=== PATIENT | male | born 1995 | race Caucasian/White ===

== ENCOUNTER 2017-11-28 13:29 | Day surgery (SDC) | payer OTHER ==
[2017-11-28] MEDS ORDERED: FENTANYL CITRATE INJ/PF 100 MCG/2 ML AMPUL ONE ×2 (14:29)
[2017-11-28] MEDS ORDERED: MIDAZOLAM 2 MG/2 ML INJ ONE (14:29)
[2017-11-28] MEDS ORDERED: PROPOFOL INJ 200 MG/20 ML VIAL IV ONE (14:30)
--- NOTE | 2017-11-28 14:38 | RADIOLOGY REPORT (SQ) ---
EXAM DESCRIPTION: CHEST SINGLE VIEW COMPLETED DATE/TIME: 11/28/2017 2:24 pm REASON FOR STUDY: Pre-operative COMPARISON: None. EXAM PARAMETERS: NUMBER OF VIEWS: One view. TECHNIQUE: Single frontal radiographic view of the chest acquired. RADIATION DOSE: NA LIMITATIONS: None. FINDINGS: LUNGS AND PLEURA: No opacities, masses or pneumothorax. No pleural effusion. MEDIASTINUM AND HILAR STRUCTURES: No masses. Contour normal. HEART AND VASCULAR STRUCTURES: Heart normal in size. Normal vasculature. BONES: No acute findings. HARDWARE: None in the chest. OTHER: No other significant finding. IMPRESSION: NO ACUTE RADIOGRAPHIC FINDING IN THE CHEST. TECHNICAL DOCUMENTATION: JOB ID: [id number] [employer]- All Rights Reserved Reading location - IP/workstation name: [email or web address]
[2017-11-28 14:49] LABS: ABSOLUTE EOSINOPHILS # (AUTO) 0.1 10^3/uL (0.0-0.6); ABSOLUTE LYMPHOCYTES (AUTO) 1.4 10^3/uL (0.5-4.7); ABSOLUTE MONOCYTES (AUTO) 0.4 10^3/uL (0.1-1.4); ABSOLUTE NEUT (AUTO) 3.7 10^3/uL (1.7-8.2); BASOPHILS % (AUTO) 0.3 % (0-2); HEMATOCRIT 47.6 % (37.9-51.0); HEMOGLOBIN 16.6 g/dL (13.5-17.0); LYMPHOCYTES % (AUTO) 25.5 % (13-45); MEAN CORPUSCULAR HEMOGLOBIN 30.1 pg (27.0-33.4); MEAN CORPUSCULAR HGB CONC 34.9 g/dL (32.0-36.0); MEAN CORPUSCULAR VOLUME 86 fl (80-97); MONOCYTES % (AUTO) 7.9 % (3-13); PLATELET COUNT 217 10^3/uL (150-450); RED BLOOD COUNT 5.51 10^6/uL (4.35-5.55); RED CELL DISTRIBUTION WIDTH 13.3 % (11.5-14.0); SEGMENTED NEUTROPHILS % (AUTO) 65.3 % (42-78); TOTAL CELLS COUNTED % (AUTO) 100 %; WHITE BLOOD COUNT 5.6 10^3/uL (4.0-10.5)
[2017-11-28] MEDS ORDERED: ONDANSETRON HCL INJ/PF 4 MG/2 ML SDV ONE (14:55)
[2017-11-28] MEDS ORDERED: DEXAMETHASONE SOD PHOSPHATE INJ 4 MG/1 ML VIAL ONE (14:55)
[2017-11-28 15:19] LABS: ANION GAP 11 (5-19); BLOOD UREA NITROGEN 12 mg/dL (7-20); CALCIUM 9.9 mg/dL (8.4-10.2); CARBON DIOXIDE 32 mmol/L (22-30); CHLORIDE 100 mmol/L (98-107); GLUCOSE 93 mg/dL (75-110); POTASSIUM 3.9 mmol/L (3.6-5.0); SODIUM 143.1 mmol/L (137-145)
[2017-11-28] MEDS ORDERED: CEFAZOLIN 2 GM/D5W RTU 2 GM/50 ML RTUPB IV ONE (15:27)
[2017-11-28] MEDS ORDERED: BUPIVACAINE HCL 0.5 % INJ/PF 30 ML SDV ONE (15:44)
[2017-11-28] MEDS ORDERED: LIDOCAINE 2% INJ-PF (20 MG/ML) 10 ML AMPUL ONE (15:53)
[2017-11-28] MEDS ORDERED: ACETAMINOPHEN 100 ML IV ONE (15:53)
[2017-11-28] MEDS ORDERED: ONDANSETRON HCL INJ/PF 4 MG/2 ML SDV IV PRN (19:08)
[2017-11-28] MEDS ORDERED: FENTANYL CITRATE INJ/PF 100 MCG/2 ML AMPUL IV PRN (19:08)
[2017-11-28] MEDS ORDERED: OXYCODONE-ACETAMINOPHEN 5-325 MG TABLET PO PRN (19:08)
--- NOTE | 2017-11-28 19:08 | Operative Report ---
Operative Report DATE OF SURGERY: 11/28/17 PREOPERATIVE DIAGNOSIS: Left Middle Finger Flexor Tendon Laceration POSTOPERATIVE DIAGNOSIS: FDP/FDS Laceration Left Middle Finger. Ulnar Digital Nerve Laceration Left Middle Finger OPERATION: Repair FDP/ Ulnar Slip FDS Laceration Left Middle Finger. Repair Ulnar Digital Nerve Laceration Left Middle Finger w/ Nerve Allograft with the use of microscope SURGEON: LANDY GLASS 1ST ADVERTISING ACCOUNT MANAGER: HONEY GRAHAM - Required for digital nerve repair for retraction and allograft manipulation under microscope magnification ANESTHESIA: GA COMPLICATIONS: None ESTIMATED BLOOD LOSS: Minimal PROCEDURE: Indication for above procedure: Pleasant 22-year-old male who inadvertently sustained a laceration to his left middle finger. Patient inability to flex his DIP joint thus I was likely patient sustained a flexor tendon injury. Furthermore he also had numbness and tingling in the tip of his digit indicating likely digital nerve laceration as well. Unfortunately patient had delayed follow-up but we discussed treatment options and decision was made to proceed with operative treatment. Risks and benefits were explained patient verbalized understanding consented for the procedure. Procedure In Detail: Patient was seen and evaluated in the preoperative holding area. The LEFT upper extremity was initialized and marked. Patient received 2 g Ancef IV for bacterial prophylaxis. Patient was taken back to the operative room where patient was transferred to the operative table. Patient was then placed under general anesthesia. Once he was adequately anesthetized and a nonsterile tourniquet was placed on his upper extremity. A sugical team review was performed ensuring all instrumentation was available, the surgical procedure was discussed with possible concerns reviewed. The upper extremity prepped with chlorhexidine and alcohol and draped in a sterile fashion. A timeout was done identifying correct patient, procedure and extremity everyone in attendance agree with this and verbalized no concerns.The extremity was exsanguinated the tourniquet was inflated to 250 mmHg. The LEFT MIDDLE finger laceration was opened and a Radha type incision was extended proximally and distally over the A1 and A4 pulleys. The neurovascular bundle radially and ulnarly were identified, the ulnar digital nerve was lacerated. At this point the FDS and FDP tendons were identified proximally and a portion of the A1 bianca released. With the use of the tendon grasper the tendons were then pulled through the A2 bianca from its proximal location in the palm the appropriate anatomic distribution of the tendons was ensured at Camper's chiasm. The tendons were then secured into position with a 22-gauge needle. The radial FDS slip was excised to decrease postoperative work of flexion. The A4 bianca was then partially vented distally to ensure adequate space for optimal gliding through the bianca sheath. The ulnar slip of the FDS was then repaired with a modified Redman stitch utilizing 5-0 proline suture. I began the epitendinous suture along the dorsal aspect of the FDP tendon with a simple running suture. The FDP was then repaired utilizing 8-stranded repair with a cruciate suture technique utilizing 3-0 Supramid suture. The epitendinous suture was then completed running along the volar surface and secured. There was optimal approximation of the tendon surfaces. There is no evidence catching or locking along the A2 or A4 bianca. No evidence of bowstringing. Patient had full passive range of motion and active range of motion with forearm squeeze and tenodesis. I then turned my attention to digital nerve repair. There was a 20 mm digital nerve gap. Thus the 1-2 mm x 30 mm Axogen nerve allograft was placed in the back table in warm saline. Once the appropriate consistency it was trimmed to fill the 20 mm digital nerve gap. Under microscope magnification the epineural repair was performed with 8-0 nylon suture. There was no evidence of gapping or tension after repair. This was then reinforced with Tisseel fibrin glue. Tourniquet was then deflated. Any peripheral bleeding was controlled with bipolar cautery into the wound was dry. Patient had normal capillary refill. A digital block was performed utilizing 0.5% Marcaine without epinephrine for postoperative pain control. The wound was then copious irrigated with normal saline. Skin incision was closed with interrupted 4-0 nylon suture. The wound was dressed with sterile Xeroform and 4 x 4's. Patient was placed in a dorsal blocking plaster splint that extended past the IP joints with the wrist at neutral flexion, MCP joint at 60 of flexion and the IP joints at resting flexion. Sponge counts, instrument counts, needle counts counts were correct. Patient was then awoken from anesthesia. Transferred from the operating room table to the operating room stretcher. There was no intraoperative complications patient tolerated procedure well stable to PACU. Postoperative plan: Patient will follow in the office in 2 weeks for suture removal. Will be set up for occupational therapy 5-7 days postoperatively as per zone II flexor tendon protocol.
--- NOTE | 2017-11-28 19:20 | Discharge Summary ---
Discharge Summary (SDC) - Discharge Final Diagnosis: FDP/FDS Laceration Left Middle Finger Ulnar Digital Nerve Laceration Left Middle Finger Date of Surgery: 11/28/17 Discharge Date: 11/28/17 Condition: Good Treatment or Instructions: Schedule Follow Up w/ Dr. Ebenezer Agustin @ [facility] to be seen in 10-14 days or as scheduled [place]: [place]: [place]: Ice and elevate Keep splint clean/dry/intact. If your fingers become numb please unwrap the Rico wrap but leave the splint in place, if the sensation does not return within 30 minutes please return to the emergency department. Please use ibuprofen (Motrin or Advil) 600-800 mg every 8 hours as needed for pain or fever DO NOT TAKE w/ TORADOL may use once TORADOL complete. You may also use acetaminophen (Tylenol) 1000 mg every 4-6 hours as needed for pain or fever. Please be aware that many medications contain acetaminophen, do not exceed a total of 1000 mg of acetaminophen every 6 hours. If ibuprofen and acetaminophen are not sufficient for your pain you may take the Percocet/[place]. Please be aware that the Percocet/[place] does contain Tylenol. Stool softener of choice when on pain medication. Begin occupational therapy at [facility] 5-7 days. Prescriptions: Ketorolac Tromethamine [Toradol 10 mg Tablet] 10 mg PO Q8HP PRN #10 tablet PRN Reason: Oxycodone HCl/Acetaminophen [Percocet 5-325 mg Tablet] 1 - 2 tab PO ASDIR PRN # 35 tablet PRN Reason: Discharge Diet: As Tolerated Respiratory Treatments at Home: Deep Breathing/Coughing Discharge Activity: No Lifting Over 10 Pounds, No Lifting/Push/Pulling Report the Following to Your Physician Immediately: Fever over 101 Degrees, Unusual Bleeding, Redness, Swelling, Warmth, Increased Soreness
--- NOTE | 2017-11-28 19:39 | EKG REPORT ---
SEVERITY:- NORMAL ECG - SINUS RHYTHM : Confirmed by: Keshawn Erickson MD 28-Nov-2017 19:39:10
[2017-11-28 20:35] VITALS: BP 137/65
[2017-11-29] MEDS ORDERED: CEFAZOLIN 2 GM/D5W RTU 2 GM/50 ML RTUPB IV PRN (05:00)
== END 2017-11-28 21:50 | disposition home or self-care (01) ==
LOC: OROUT 13:29 → EDSEX 16:00 → 2N 20:24 → OROUT 21:50
PROVIDERS: ATTEND Orthopaedic Surgery
PROC: 0LQ80ZZ Repair Left Hand Tendon, Open Approach (ICD-10-PCS; 2017-11-28)
PROC: 01U407Z Supplement Ulnar Nerve with Autologous Tissue Substitute, Open Approach (ICD-10-PCS; principal; 2017-11-28 16:00)
DX: S66.123A Laceration of flexor muscle, fascia and tendon of left middle finger at wrist and hand level, initial encounter (principal); S64.493A Injury of digital nerve of left middle finger, initial encounter; S61.213A Laceration without foreign body of left middle finger without damage to nail, initial encounter; W26.0XXA Contact with knife, initial encounter
CPT/HCPCS: 36415; 85025; 80048; 71045; 93005; 93010; 64912; 26356; C1769; J2250; J3490 ×2; J1100; J3010; J2405; J2704; J0690; J0131; 1810

== ENCOUNTER 2018-01-27 10:47 | Day surgery (SDC) | payer OTHER ==
[~2018-01-27 10:47] MED LIST: CEFAZOLIN 2 GM/D5W RTU 2 GM/50 ML RTUPB IV PRN
[2018-01-27] MEDS ORDERED: DEXAMETHASONE SOD PHOSPHATE INJ 4 MG/1 ML VIAL ONE (12:03)
[2018-01-27] MEDS ORDERED: MIDAZOLAM 2 MG/2 ML INJ ONE (12:03)
[2018-01-27] MEDS ORDERED: FENTANYL CITRATE INJ/PF 100 MCG/2 ML AMPUL ONE (12:03)
[2018-01-27] MEDS ORDERED: MORPHINE SULFATE 10 MG/ML INJ ONE (12:03)
[2018-01-27] MEDS ORDERED: PROPOFOL INJ 200 MG/20 ML VIAL IV ONE (12:03)
[2018-01-27] MEDS: BUPIVACAINE HCL 0.5 % INJ/PF 30 ML SDV ONE ×2 (13:33→15:20)
[2018-01-27] MEDS ORDERED: MEPERIDINE HCL/PF INJ 25 MG/1 ML DISP.SYRIN IV PRN (13:55)
[2018-01-27] MEDS ORDERED: FENTANYL CITRATE INJ/PF 100 MCG/2 ML AMPUL IV PRN ×3 (13:55)
[2018-01-27] MEDS ORDERED: DIPHENHYDRAMINE HCL 50 MG/ML VIAL IV PRN (13:55)
[2018-01-27] MEDS ORDERED: MORPHINE SULFATE 10 MG/ML INJ IV PRN (13:55)
[2018-01-27] MEDS ORDERED: PROMETHAZINE HCL INJ 25 MG/1 ML VIAL IV PRN ×2 (13:55)
[2018-01-27] MEDS ORDERED: OXYCODONE-ACETAMINOPHEN 5-325 MG TABLET PO PRN (15:35)
[2018-01-27] MEDS ORDERED: ONDANSETRON HCL INJ/PF 4 MG/2 ML SDV IV PRN (15:35)
[2018-01-27] MEDS ORDERED: HYDROMORPHONE HCL INJ/PF 2 MG/ML AMPULE IV PRN (15:35)
--- NOTE | 2018-01-27 15:36 | Discharge Summary ---
Discharge Summary (SDC) - Discharge Final Diagnosis: Left middle finger flexor tendon rupture Date of Surgery: 01/27/18 Discharge Date: 01/27/18 Condition: Good Treatment or Instructions: Schedule Follow Up w/ Dr. Ebenezer Agustin @ [facility] to be seen in 10-14 days or as scheduled [place]: [place]: [place]: Ice and elevate Keep splint clean/dry/intact. If your fingers become numb please unwrap the Rico wrap but leave the splint in place, if the sensation does not return within 30 minutes please return to the emergency department. May begin finger passive range of motion of middle finger DIP/PIP Joint. May begin active ROM of PIP Joint Please use ibuprofen (Motrin or Advil) 600-800 mg every 8 hours as needed for pain or fever DO NOT TAKE w/ TORADOL may use once TORADOL complete. You may also use acetaminophen (Tylenol) 1000 mg every 4-6 hours as needed for pain or fever. Please be aware that many medications contain acetaminophen, do not exceed a total of 1000 mg of acetaminophen every 6 hours. If ibuprofen and acetaminophen are not sufficient for your pain you may take the Percocet/[place]. Please be aware that the Percocet/[place] does contain Tylenol. Stool softener of choice when on pain medication. Patient will begin occupational therapy 3-5 days postoperatively Prescriptions: Oxycodone HCl/Acetaminophen [Percocet 5-325 mg Tablet] 1 - 2 tab PO ASDIR PRN # 35 tablet PRN Reason: Discharge Diet: As Tolerated Respiratory Treatments at Home: Deep Breathing/Coughing Discharge Activity: No Lifting Over 10 Pounds, No Lifting/Push/Pulling Home Care Assistance: None Needed Report the Following to Your Physician Immediately: Fever over 101 Degrees, Unusual Bleeding, Redness, Swelling, Warmth, Increased Soreness
--- NOTE | 2018-01-27 15:47 | Operative Report ---
Operative Report DATE OF SURGERY: 01/27/18 PREOPERATIVE DIAGNOSIS: Left middle finger flexor tendon rupture POSTOPERATIVE DIAGNOSIS: Left middle finger FDP tendon rupture with FDS adhesions OPERATION: 1. Left middle finger flexor Tenolysis. 2. PIP joint contracture release. 3. Placement of Presley marilee SURGEON: LANDY GLASS ANESTHESIA: GA COMPLICATIONS: None ESTIMATED BLOOD LOSS: 18 cc PROCEDURE: Indication for above procedure: 22-year-old male who is doing well after flexor tendon repair but subsequently early this week he was grasping to start a power driven brush maker when he felt a pop in his middle finger and was unable to bend his middle finger consistent with FDP recurrent rupture. We discussed treatment options including operative intervention and postoperative rehabilitation and expected outcomes. After discussing these treatment options joint decision was made to proceed with operative treatment. Procedure In Detail: Patient was seen and evaluated in the preoperative holding area. The LEFT upper extremity was initialized and marked. Patient received 2g of Ancef IV for bacterial prophylaxis. Patient was taken back to the operative room where transferred to the operative table and placed under general anesthesia. Once they were adequately anesthetized a nonsterile tourniquet was placed on the upper extremity. A surgical team debriefing was performed ensuring all instrumentation was available, the surgical procedure was discussed with possible concerns reviewed. The upper extremity was prepped with chlorhexidine and alcohol and draped in a sterile fashion. A timeout was done identifying correct patient, procedure and extremity everyone in attendance agree with this and verbalized no concerns. The extremity was exsanguinated the tourniquet was inflated to 250 mmHg. Previous skin incision was utilized and extended slightly proximally and distally. Blunt dissection was performed down to the flexor sheath proximally within normal tissue and distally within normal tissue. Once normal tissue was isolated the remaining skin flap was carefully elevated with special care to protect the neurovascular bundles radially and ulnarly. I then identified the ulnar neurovascular bundle the previous ulnar nerve repair site remained patent however there was significant scar along this region. Thus a ulnar digital nerve neuro lysis was performed freeing it from surrounding soft tissues. Careful dissection I was able to isolate the A2 and A4 pulleys along with the A5 bianca Louise remained intact. Superficial nonviable scar tissue was resected to reveal normal-appearing pulleys. Inspection just between the A4 and A2 pulleys demonstrated intact FDS tendon to its insertion point. The FDS was then isolated and freed from surrounding soft tissue with a tenolysis. Once the FDS was adequately freed was able to isolate the PIP joint. A partial resection of the radial and ulnar sensory collaterals were released to allow full PIP joint extension and flexion passively. I was then able to pull the FDS proximally which allowed me to actively flex the PIP joint fully. Unfortunately at this level there was scarring of the FDP tendon and evidence of the previous rupture site the previous suture was debrided and removed. The tendon edges were debrided and secondary to myostatic contraction was unable to primary repair the tendon. Thus the FDP tendon was debrided back to the A1 bianca and the adjacent lumbrical release to avoid intrinsic plus contracture. Given the amount of scar tissue required to tenolyse the FDS and released the PIP joint decision was made to place a Presley marilee. The FDP was debrided distally. A skin incision was made just ulnar to the palmaris longus blunt dissection was performed any peripheral bleeding was controlled with bipolar cautery the palmaris longus was identified. I then bluntly dissected between the distal palmar crease to the distal wrist flexion crease to allow passage of presley implant. The FDP tendon was measured to be approximately 6 mm thus a Presley marilee 5 x 26 mm marilee was opened and left in the package. The marilee was cleansed with saline and then passed from the form wound into the distal palm wound. Using further plastic deep to the A2 and A4 pulleys utilizing "no touch" technique. The Presley marilee was then secured to the FDP stump with a modified Redman stitch utilizing 3-0 Prolene suture. This was reinforced with additional [id number] suture. From the forearm wound traction was placed to the presley marilee which demonstrated no evidence of bianca insufficiency or bowstringing. The wounds were then copiously irrigated with normal saline. Tourniquet was deflated. Compression was held for 2 minutes. Any peripheral bleeding was controlled. Skin incisions were closed with 4-0 nylon suture. Once again patient full passive flexion of the DIP and PIP joints. Cap refill is less than 2 seconds. 20 cc of 0.5% Marcaine without epinephrine was injected for postoperative pain control. Based in a dorsal blocking splint maintaining MP joint flexion of 60 with wrist flexion of 20 the IP joints at neutral. Sponge counts, instrument counts, needle counts counts were correct. Patient was then awoken from anesthesia. Transferred from the operating room table to the operating room stretcher. There was no intraoperative complications patient tolerated procedure well stable to PACU. Postoperative plan: Patient will follow-up in the office in 2 weeks. He will begin physical therapy immediately Tuesday begin passive range of motion of the DIP, PIP and MP joint and may begin active range of motion of the PIP joint given tenolysis of the FDS.
[2018-01-27] MEDS ORDERED: ONDANSETRON HCL INJ/PF 4 MG/2 ML SDV ONE (15:54)
[2018-01-27 17:09] VITALS: BP 120/80
== END 2018-01-27 17:15 | disposition home or self-care (01) ==
LOC: OROUT 10:47
PROVIDERS: ATTEND Orthopaedic Surgery
DX: S66.123A Laceration of flexor muscle, fascia and tendon of left middle finger at wrist and hand level, initial encounter (principal); S64.493A Injury of digital nerve of left middle finger, initial encounter; X58.XXXA Exposure to other specified factors, initial encounter; Y93.89 Activity, other specified
CPT/HCPCS: 26123; J2250; J3490; J1100; J3010; J2270; J2405; J2704; J0690; 1810